=== PATIENT | female | born 1955 | race Caucasian/White ===

== ENCOUNTER 2020-10-12 09:02 | Day surgery (SDC) | payer OTHER, MEDICAID, SELFPAY ==
--- NOTE | 2020-10-11 20:30 | W.PREOPHP ---
Date of service: 10/12/20 Assessment and Plan Assessment and plan (1) Cortical cataract of right eye: Status: Chronic Assessment and plan: Cataract surgery with PCIOL (2) Nuclear sclerotic cataract of right eye: Status: Chronic Assessment and plan: Cataract surgery with PCIOL (3) Nuclear sclerotic cataract of left eye: Status: Chronic Assessment and plan: Cataract surgery with PCIOL (4) Cortical cataract of left eye: Status: Chronic Assessment and plan: Cataract surgery with PCIOL (5) Posterior subcapsular age-related cataract of left eye: Status: Chronic Assessment and plan: Cataract surgery with PCIOL (6) Posterior subcapsular age-related cataract, right eye: Status: Chronic Assessment and plan: Cataract surgery with PCIOL History of Present Illness History of Present Illness Chief Complaint: Decreased vision both eyes Narrative: Progressive decreased vision both eyes, right eye worse than left Review of Systems Constitutional Constitutional: Reports frequent falls Eyes Eyes: Reports as per HPI, Reports blurry vision and Reports loss of vision Musculoskeletal Musculoskeletal: Reports abnormal gait Neurologic Neurologic: Reports abnormal gait, Reports frequent falls, Reports lack of coordination and Reports loss of vision PFSH Medical History Depression Falls Focal dystonia Gait instability GERD without esophagitis Parkinsons disease REM behavioral disorder Short-term memory loss Tardive dyskinesia Surgical History (Updated 10/12/20 @ 10:09 by Marii Arboleda) Hx of tonsillectomy Social History Smoking/Tobacco Use Status: Former Tobacco Use Quit Date: 06/05/19 Smoking risk assessment performed?: Yes Alcohol Intake: never Drug use: Never Substance use type: does not use Do you feel safe at home: Yes Do you feel safe in your relationship?: Yes Additional Social history: son lives at home Meds Allergies and Home Medications Allergies Allergy/AdvReac Type Severity Reaction Status Date / Time codeine Allergy Mild Skin Rash Unverified 10/12/20 10:13 Penicillins Allergy Mild Skin Rash Unverified 10/12/20 10:13 Home Medications Medication Instructions Recorded Confirmed Type albuterol sulfate [Ventolin HFA] 2 puff INHALATION Q4H PRN 10/08/20 10/12/20 History amantadine HCl 100 mg PO BID 10/08/20 10/12/20 History baclofen 10 mg PO TID 10/08/20 10/12/20 History betamethasone dipropionate 1 applic TOPICAL BID 10/08/20 10/12/20 History carbidopa-levodopa 1 tab PO 7XD 10/08/20 10/12/20 History carbidopa-levodopa 1 tab PO TID 10/08/20 10/12/20 History clonazepam 1 mg PO TID PRN MDD 4 tabs 10/08/20 10/12/20 History fludrocortisone 0.1 mg PO DAILY 10/08/20 10/12/20 History gabapentin 600 mg PO TID 10/08/20 10/12/20 History meclizine 12.5 mg PO DAILY PRN 10/08/20 10/12/20 History omeprazole 40 mg PO DAILY 10/08/20 10/12/20 History ondansetron 4 mg PO Q8H PRN 10/08/20 10/12/20 History sertraline 25 mg PO DAILY 10/08/20 10/12/20 History sertraline 100 mg PO DAILY 10/08/20 10/12/20 History Exam Eyes General: appearance normal, both eyes and all related structures Alignment and Position: alignment normal Periorbital: periorbital findings normal Eyelids: eyelids normal Conjunctivae: conjunctivae normal Sclera: sclerae normal Cornea: corneas normal Pupils: PERRL EOM: EOM intact bilaterally Direct ophthalmoscopy: normal light reflex and anterior chamber normal Other: bilateral nuclear, cortical and posterior subcapsular cataracts Neck Neck: normal visual inspection Resp Effort & Inspection: normal respiratory effort Auscultation: clear to auscultation bilaterally Cardio Rate: regular rate Rhythm: regular rhythm
[2020-10-12 10:21] VITALS: BP 119/58; PULSE 63; RESP 16; TEMP 36.3; O2SAT 94
[2020-10-12] MEDS: Tropicam./Phenyleph. (1/2.5%) 5 ML BTL OS ×5 (10:27→10:57)
--- NOTE | 2020-10-12 10:48 | W.ANESPRE ---
General Info Date of Service Date Performed: 10/12/20 Height: 5 ft 3 in Weight: 48.3 kg Body Mass Index (BMI): 18.8 Surgical Procedure: Operation Date: 10/12/20 12:55 Proposed Procedures Side Surgeon p Cataract Extraction with IOL Implant Left Josue Garnica MD Meds Allergies and Home Medications Allergies Allergy/AdvReac Type Severity Reaction Status Date / Time codeine Allergy Mild Skin Rash Unverified 10/12/20 10:13 Penicillins Allergy Mild Skin Rash Unverified 10/12/20 10:13 Home Medication Medication Instructions Recorded albuterol sulfate [Ventolin HFA] 2 puff INHALATION Q4H PRN 10/08/20 amantadine HCl 100 mg PO BID 10/08/20 baclofen 10 mg PO TID 10/08/20 betamethasone dipropionate 1 applic TOPICAL BID 10/08/20 carbidopa-levodopa 1 tab PO 7XD 10/08/20 carbidopa-levodopa 1 tab PO TID 10/08/20 clonazepam 1 mg PO TID PRN MDD 4 tabs 10/08/20 fludrocortisone 0.1 mg PO DAILY 10/08/20 gabapentin 600 mg PO TID 10/08/20 meclizine 12.5 mg PO DAILY PRN 10/08/20 omeprazole 40 mg PO DAILY 10/08/20 ondansetron 4 mg PO Q8H PRN 10/08/20 sertraline 25 mg PO DAILY 10/08/20 sertraline 100 mg PO DAILY 10/08/20 Current Visit Medications: Current Medications Generic Name Dose Route Start Last Admin Trade Name Freq PRN Reason Stop Dose Admin Acetaminophen 1,000 mg 10/12/20 06:00 Acetaminophen 500 Mg Tab PO Q4H PRN PRN Miscellaneous Medication 0 ml 10/12/20 06:00 Prednisolone 1%, Moxifloxacin 0.5%, Nepafenac 0.1% 5ml Btl OS DIRECTED ENRIQUE Miscellaneous Medication 0 ml 10/12/20 06:00 10/12/20 10:27 Tropicam./Phenyleph. (1/2.5%) 5 Ml Btl OS 1 drp DIRECTED ENRIQUE Administration Tetracaine HCl 0 ml 10/12/20 06:00 Tetracaine 0.5% 4 Ml Btl OS DIRECTED ENRIQUE PFSH Active Problems Active Problems: Problem Status Onset Code Nuclear sclerotic cataract of left eye H25.12 Cortical cataract of left eye H26.9 Posterior subcapsular age-related cataract of left eye H25.042 Cortical cataract of right eye H26.9 Nuclear sclerotic cataract of right eye H25.11 Posterior subcapsular age-related cataract, right eye H25.041 Medical History Medical History Depression Falls Focal dystonia Gait instability GERD without esophagitis Parkinsons disease REM behavioral disorder Short-term memory loss Tardive dyskinesia Surgical History Surgical History (Updated 10/12/20 @ 10:09 by Marii Arboleda) Hx of tonsillectomy Tobacco Smoking/Tobacco Use Status: Former Tobacco Use Alcohol Alcohol Intake: never Substance Use Substance use: Never Substance use type: does not use Vital Signs and Lab Results Vital Signs Most Recent Vital Signs in EMR: Most Recent Vital Signs Temp Pulse Resp BP Pulse Ox 36.3 C L 63 16 119/58 L 94 10/12/20 10:21 10/12/20 10:21 10/12/20 10:21 10/12/20 10:21 10/12/20 10:21 Lab Results Blood Type / Crossmatch: No Data to Display Complete Blood Count: No Data to Display Complete Metabolic Panel: No Data to Display Liver Function Panel: No Data to Display Coagulation Panel: No Data to Display Cardiac Panel: No Data to Display Arterial Blood Gas: No Data to Display Venous Blood Gas: No Data to Display Pancreas Panel: No Data to Display Thyroid Panel: No Data to Display Infectious Disease: No Data to Display Blood Cultures: No Data to Display Toxicology Panel: No Data to Display Anesthesia Assessment and Plan Anesthesia History Personal History: No History of Anesthesia Complications Family History: No Family History of Anesthesia Complications Exercise Tolerance Exercise Tolerance: Metabolic Equivalents>4 Pertinent Negatives Pertinent Negatives: No Symptoms of GERD, No Major Cardiovascular Symptoms or Complaints and No Major Pulmonary Symptoms or Complaints Cardiac & Pulmonary Exam Cardiac Exam: Normal S1/S2 Heart Sounds Pulmonary Exam: Clear Bilateral Breath Sounds Airway Exam Known Difficult Airway: No Mallampati Class: 2 Mouth Opening: Normal (> 3cm) Thyromental Distance: Greater than 3 cm Neck Range of Motion: Full ROM Neck Circumference: Normal Teeth Condition: Normal Dentition ASA Classification ASA Score: ASA 2 Emergency Case?: No NPO Status NPO Status: NPO Clears >2 hours, Solids >8 hours Anesthesia Plan Anesthesia Technique: MAC Anesthesia Airway Planned: Natural Airway Monitors Used: Standard Monitors
[2020-10-12 10:52] VITALS: BMI 18.8
[2020-10-12] MEDS: Povidone-Iodine Ophth 30 ML BTL (11:53)
--- NOTE | 2020-10-12 11:54 | W.ANESPOSTOP ---
Postoperative Evaluation Date, Time and Location Date Performed: 10/12/20 Time Performed: 12:19 Patient Location: Day Surgery Unit Vital Signs Most Recent Imported Vital Signs: Most Recent Vital Signs Temp Pulse Resp BP Pulse Ox 36.3 C L 63 16 119/58 L 94 10/12/20 10:21 10/12/20 10:21 10/12/20 10:21 10/12/20 10:21 10/12/20 10:21 Most Recent Manually Entered Vital Signs: Adult Blood Pressure: 131/70 Heart Rate: 79 Respirations: 16 Oxygen Saturation (%): 95 Temperature (C): 36.6 C Pain Score (0-10 Scale): 0 Pain Score Most Recent Pain Score: Most Recent Pain Score Pain Level 0 10/12/20 10:21 Assessment Mental Status: Awake (Alert & Oriented to Patient Baseline) Airway and Respiratory Function: Patent airway with normal (patient baseline) respiratory exam Cardiovascular Function: Hemodynamically Stable Hydration Status: Adequately Hydrated Nausea & Vomiting: No Nausea or Vomiting Pain: Pt. Denies Any Pain Peripheral Nerve Block: Other (Local by Dr. Garnica)
[2020-10-12] MEDS: Lidocaine 2% Jelly 6 ML SYR (11:55)
[2020-10-12] MEDS: Lidocaine 1% Pres-Free 5 ML VIAL (11:56)
[2020-10-12] MEDS: Balanced Salt Soln.-PLUS 500 ML BAG (11:57)
[2020-10-12] MEDS: Duovisc Viscoelastic System EACH 1 EACH (11:57)
[2020-10-12] MEDS: Tetracaine 0.5% 4 ML BTL OS (11:58)
[2020-10-12 12:20] VITALS: BP 131/70; PULSE 79; RESP 16; TEMPC 36.6; O2SAT 95
--- NOTE | 2020-10-12 12:22 | W.PM.DSUDISC ---
Discharge Plan Disposition Patient Disposition: HOME Condition: Good Discharge Details Reason For Visit: CATARACT Attending Provider: Josue Garnica Primary Care Provider: Montse Shaffer Home Meds and New Rx's Prescriptions: No Action sertraline 100 mg Tablet 100 mg PO DAILY RF: 0 clonazepam 1 mg Tablet 1 mg PO TID MDD 4 tabs PRNRF: 0 meclizine 12.5 mg tablet 12.5 mg PO DAILY PRNRF: 0 omeprazole 40 mg capsule,delayed release(DR/EC) 40 mg PO DAILY RF: 0 amantadine HCl 100 mg capsule 100 mg PO BID RF: 0 baclofen 10 mg tablet 10 mg PO TID RF: 0 betamethasone dipropionate 0.05 % cream 1 applic TOPICAL BID RF: 0 gabapentin 300 mg Capsule 600 mg PO TID RF: 0 sertraline 25 mg tablet 25 mg PO DAILY RF: 0 albuterol sulfate [Ventolin HFA] 90 mcg/actuation HFA aerosol inhaler 2 puff INHALATION Q4H PRNRF: 0 carbidopa-levodopa 25-100 mg tablet 1 tab PO TID RF: 0 ondansetron 4 mg tablet,disintegrating 4 mg PO Q8H PRNRF: 0 fludrocortisone 0.1 mg tablet 0.1 mg PO DAILY RF: 0 carbidopa-levodopa 25-100 mg Tablet Extended Release 1 tab PO 7XD RF: 0 Discharge Instructions Stand Alone Forms: Post-op Block Cataract, Post-op Topical Cataract, Press Ganey (DSU) Discharge Orders Discharge Orders: Discharge Order (Routine); Ordered 10/12/20 Ordered By: Josue Garnica DS: Diagnosis Discharge Diagnosis (1) Cortical cataract of right eye: Status: Resolved (2) Nuclear sclerotic cataract of right eye: Status: Resolved (3) Posterior subcapsular age-related cataract, right eye: Status: Resolved
[2020-10-12 12:23] VITALS: BP 131/70; PULSE 76; RESP 16; TEMP 36.6; O2SAT 97
--- NOTE | 2020-10-12 12:23 | W.PM.OP ---
Date of service: 10/12/20 Time of Service: 12:23 Operative Note Operative Note POST-OP DIAGNOSIS: same PROCEDURE: Cataract extraction using phacoemulsification with intraocular lens implantation, right eye, using capsular staining with Vision Blue SURGEON: Josue Garnica Refer to Anesthesia Record PATHOLOGY: none sent COMPLICATIONS: None Patient was transported to: same day Patient's condition: stable Implants: [employer] / [employer] Tecnis [id number] Indications: Progressive visual loss due to cataract, right eye Procedure Description: CATARACT SURGERY OPERATIVE REPORT PREOPERATIVE DIAGNOSIS: 1. Dense nuclear/cortical/posterior subcapsular cataract, right eye 2. Poor red reflex secondary to #1 POSTOPERATIVE DIAGNOSIS: Same OPERATION: 1. Cataract extraction using phacoemulsification with posterior chamber intraocular lens implant, right eye. 2. Capsular staining with Vision Blue IOL: IOL Seasonal Green[employer] Bundler/Model: John [employer] John / SIM Tecnis [id number] IOL Power: + 18.0 diopters IOL Serial Number: [id number] Optic Diameter: 6.0mm Haptic/Overall Diameter: 13.0mm PHACO INFO: KhurramCenoplex Vision System with OZil and Active Fluidics Cumulative Dispersed Energy (CDE): 12.28 seconds SURGEON: Josue Garnica MD, SILVIA ANESTHESIA: Monitored Anesthesia Care (MAC), with local sub-tenon's anesthetic infiltration COMPLICATIONS: None SPECIMENS: None INDICATIONS FOR PROCEDURE: Patient is a 65-year-old lady with history of diminished visual acuity in her right eye secondary to the development of dense nuclear/cortical/posterior subcapsular cataract. Visual acuity is less than 20/400 in that eye. The option of cataract surgery was offered to the patient and she felt she was symptomatic enough that she wished to proceed. She has Parkinson's, with constant tremor and movement. PROCEDURE: The correct surgical eye was identified and marked as the right eye and the pupil was dilated in the preoperative area using mydriatics and cycloplegics. The dilated pupil size was 7.0 mm. Oral sedation was administered in the form of an Imprimis MKO Melt (midazolam 3mg/ketamine 25mg/ondansetron 2mg). The patient was brought to the operating room where cardiopulmonary monitoring was instituted and surgical time-out was performed, confirming the correct operative eye and IOL power. Topical anesthesia was administered and ophthalmic povidone-iodine 5% was instilled into the conjunctival fornices. Lidocaine gel was applied to the cornea and the sancho-ocular area was prepped with Betadine 10% solution and draped in the usual sterile fashion for intraocular surgery, including an aperture drape. A Tegaderm transparent film dressing was cut in half and used to cover the lashes and lid margins. Care was taken to sequester the lashes and lid margins under the Tegaderm dressing. A lid speculum was placed between the lids of the operative eye and the Estee-Rubén operating microscope was maneuvered into position. Joelle scissors were then used to make a conjunctival buttonhole approximately 6mm posterior to the limbus in the inferonasal quadrant. Blunt dissection was carried out to expose bare sclera, and a blunt-tipped sub-tenon?s anesthesia cannula was introduced and passed posteriorly along the globe where non-preserved plain lidocaine was injected into posterior sub-Tenon?s space. A sideport knife was used to make a paracentesis port inferotemporally. Intraocular phenylephrine/lidocaine was injected into the anterior chamber. Air was injected into the anterior chamber, followed by Vision Blue, which was painted over the anterior capsule and then irrigated out with BSS. The anterior chamber was filled with viscoelastic. A 2.4mm keratome knife was used to create a half-thickness groove at the limbus and then to construct a three-plane near-clear corneal tunnel extending 2.0mm into clear cornea superiortemporally. A flap was raised on the anterior capsule and capsulorhexis forceps were used to complete a continuous curvilinear capsulorhexis of 5.5 mm. Capsulorhexis was challenging secondary to constant patient movement and eye movement. Balanced salt solution was then used to perform cortical cleaving hydrodissection and nuclear hydrodelineation until the lens could be freely rotated within the capsular bag. The lens nucleus was then disassembled and removed within the capsular bag and iris plane using phacoemulsification. Residual cortical material was removed using the I/A handpiece. The posterior capsule was carefully polished to remove as much residual lens epithelial cells as safely possible. The capsular bag was then inflated and the anterior chamber deepened with viscoelastic. The lens implant described above was inserted into the capsular bag using the SIM [place] Injector. A Kuglen hook was used to dial the IOL into position. Residual viscoelastic was then removed first from posterior to the IOL, then from the anterior chamber using the I/A handpiece. The lens implant was noted to center nicely within the capsular bag. The incisions were stromally hydrated, and the anterior chamber was reformed using BSS. Then 0.5cc of moxifloxacin 1.0mg/ml were injected into the capsular bag and anterior chamber. The incisions were checked with a Weck spear and found to be secure. Several drops of ophthalmic povidone-iodine 5% were then applied to the eye followed by two drops of Imprimis combination prednisolone/moxifloxacin/nepafenac solution. The drapes were removed and a clear plastic protective eye shield was placed over the eye. The patient was then returned to Same Day Surgery in stable condition.
== END 2020-10-12 12:40 | disposition home or self-care (01) ==
PROVIDERS: Visit Provider Ophthalmology
PROC: (CPT 66982; principal; 2020-10-12 12:45)
DX: H25.011 Cortical age-related cataract, right eye (principal); H25.11 Age-related nuclear cataract, right eye; H25.041 Posterior subcapsular polar age-related cataract, right eye; G20 Parkinson's disease; H35.89 Other specified retinal disorders
CPT/HCPCS: 66982; V2632